=== PATIENT | male | born 1945 | race Caucasian/White ===

== ENCOUNTER 2022-12-03 03:14 | Inpatient (IN) | payer MEDICARE ==
[2022-12-03] MEDS ORDERED: Ketamine 50 MG/ML (10ML VIAL) ONE (04:04)
[2022-12-03] MEDS ORDERED: Calcium Chloride 1 GM/10 ML Abboject SYRINGE ONE ×2 (04:44→04:59)
[2022-12-03] MEDS ORDERED: Succinylcholine Chloride 100 MG/5 ML SYRINGE FS ONE (04:44)
[2022-12-03] MEDS ORDERED: Rocuronium Bromide 10 MG/ML (10ML VIAL) ONE (04:44)
[2022-12-03] MEDS ORDERED: Vecuronium 10 MG VIAL ONE ×2 (04:44→06:27)
[2022-12-03] MEDS ORDERED: Sodium Bicarb 50 MEQ/50 ML VIAL ONE ×2 (04:59→05:11)
[2022-12-03] MEDS ORDERED: fentaNYL PF 100 MCG/2 ML SYRINGE ONE (05:03)
[2022-12-03] MEDS ORDERED: Midazolam HCl 5 mg/5 ml Vial ONE (05:03)
[2022-12-03 05:17] LABS: Analyzer IN Cardio ER; Base Excess (BEa) -16.3 mEq/L (-2.0 to +3.0); CO2 Tension 46.8 mmHg (35.0-45.0); Calcium, Ionized (arterial) 1.09 mmol/L (1.12-1.30); Carboxyhemoglobin (COHb) 0.3 gm% (0.0-3.0); Hemoglobin (Hb) 13.4 g/dL (14.0-18.0); O2 Tension (PaO2), arterial 137.1 mmHg (> 70.0); Potassium - ABG Lab 4.41 mmol/L (3.70-5.30)
[2022-12-03 05:24] LABS: Actual Bicarbonate (HCO3a) 13.4 mEq/L (22-28); Puncture Site ALINE; pH, Arterial 7.08 (7.35-7.45)
[2022-12-03] MEDS ORDERED: Norepinephrine 4 MG/4 ML VIAL ONE (06:28)
[2022-12-03] MEDS ORDERED: Ondansetron ODT 4 MG TAB PO PRN (07:17)
[2022-12-03] MEDS ORDERED: Acetaminophen 325 MG TAB PO PRN (07:17)
[2022-12-03] MEDS ORDERED: Ondansetron PF 4 MG/2 ML Vial IVP PRN (07:17)
[2022-12-03] MEDS ORDERED: Ventilator Sedation Protocol 1 EACH FS SCH (07:30)
[2022-12-03] MEDS ORDERED: Rocuronium Bromide 50 MG/5 ML VIAL ONE (07:36)
[2022-12-03] MEDS ORDERED: Albumin 5% 1,000 ML ONE (07:36)
[2022-12-03] MEDS ORDERED: Fentanyl BOLUS 250 ML IVPB PRN (08:00)
[2022-12-03] MEDS ORDERED: DISCONTINUE PREVIOUS NARCOTIC PAIN MEDICATIONS AND BENZODIAZEPINES FS SCH (08:00)
[2022-12-03] MEDS ORDERED: Propofol 1,000 MG/100 ML VIAL IV PRN (08:00)
[2022-12-03] MEDS ORDERED: Propofol BOLUS 1,000 MG/100 ML VIAL IV PRN (08:00)
[2022-12-03 08:57] LABS: Calcium, Ionized (arterial) 1.09 mmol/L (1.12-1.30); Carboxyhemoglobin (COHb) 0.6 gm% (0.0-3.0); Hemoglobin (Hb) 10.9 g/dL (14.0-18.0); O2 Tension (PaO2), arterial 92.8 mmHg (> 70.0); Potassium - ABG Lab 3.78 mmol/L (3.70-5.30); pH, Arterial 7.24 (7.35-7.45)
[2022-12-03 08:58] LABS: Puncture Site Arterial Line
[2022-12-03] MEDS ORDERED: Dextrose 50% Abboject 50 ML SYRINGE SLOW IVP PRN (08:59)
[2022-12-03] MEDS ORDERED: VANCOMYCIN 1.25 GM/250 ML BAG 1.25 GM in Premix Bag 1 BAG IVPB SCH (09:00)
[2022-12-03] MEDS ORDERED: Electrolyte Replacement Protocol 1 EACH FS ONE (09:08)
[2022-12-03] MEDS: Fentanyl CADD 100 ML IV SCH (09:16)
[2022-12-03 09:20] LABS: ALT (SGPT) 34 U/L (8-55); AST (SGOT) 50 U/L (5-34); Albumin 2.5 g/dL (3.4-4.8); Alkaline Phosphatase 42 U/L (40-110); Anion Gap 10 mmol/L (10-20); BUN (Urea Nitrogen) 25 mg/dL (8.4-25.7); Calc. Creatinine Clearance 0 mL/min (70-130); Calcium 7.1 mg/dL (7.8-10.44); Carbon Dioxide 19 mmol/L (23-31); Chloride 119 mmol/L (98-107); Estimated GFR 85; Globulin 1.1 g/dL (2.4-3.5); Glucose 72 mg/dL (83-110); Potassium 3.8 mmol/L (3.5-5.1); Protein, Total 3.6 g/dL (5.8-8.1); Sodium 144 mmol/L (136-145)
[2022-12-03] MEDS: Piperacillin/Tazobactam 3.375 GM in Sodium Chloride 0.9% 100 ML IVPB SCH ×2 (09:28→17:29)
[2022-12-03] MEDS ORDERED: Electrolyte Replacement Protocol FS PRN (09:30)
[2022-12-03] MEDS: Sodium Bicarbonate 140 MEQ in Dextrose 5% in Water 1,000 ML IV SCH ×2 (09:42→21:12)
[2022-12-03] MEDS: Vasopressin 20 UNIT, Admixture Fee 1 EACH in Sodium Chloride 0.9% 50 ML IV PRN ×2 (15:25→23:39)
[2022-12-03] MEDS: Vancomycin 1 GM in Premix Bag 1 BAG IVPB SCH (15:25)
[2022-12-03] MEDS: DOPamine 400 MG/D5W 250 ML 250 ML IVPB SCH (15:27)
[2022-12-03] MEDS: NOREPINEPHRINE 8 MG/250 ML-D5W 250 ML IVPB PRN ×3 (15:27→23:10)
[2022-12-03] MEDS: Acetaminophen 650 MG Suppository PR PRN ×2 (15:31→23:54)
[2022-12-03] MEDS: Arformoterol 15 MCG/2 ML NEB NEB SCH (18:23)
[2022-12-03] MEDS: Budesonide 0.5 MG/2 ML NEB NEB SCH (18:28)
[2022-12-03 21:24] LABS: Anion Gap 14 mmol/L (10-20); BUN (Urea Nitrogen) 27 mg/dL (8.4-25.7); Calc. Creatinine Clearance 43 mL/min (70-130); Carbon Dioxide 19 mmol/L (23-31); Chloride 110 mmol/L (98-107); Estimated GFR 68; Glucose 119 mg/dL (83-110); Magnesium 1.8 mg/dL (1.6-2.6); Phosphorus 4.7 mg/dL (2.3-4.7); Potassium 4.2 mmol/L (3.5-5.1); Sodium 139 mmol/L (136-145)
[2022-12-03 21:27] LABS: Calcium 6.9 mg/dL (7.8-10.44)
[2022-12-03] MEDS ORDERED: Magnesium 2 GM/50 ML(in water) 2 GM in Premix Bag 1 BAG IVPB SCH (21:30)
[2022-12-04] MEDS: Piperacillin/Tazobactam 3.375 GM in Sodium Chloride 0.9% 100 ML IVPB SCH ×4 (00:46→23:18)
[2022-12-04] MEDS: NOREPINEPHRINE 8 MG/250 ML-D5W 250 ML IVPB PRN ×5 (03:03→22:10)
[2022-12-04] MEDS ORDERED: Albumin 25% 25 GM/100 ML BOT IVPB SCH (03:30)
[2022-12-04] MEDS: DOPamine 400 MG/D5W 250 ML 250 ML IVPB SCH ×2 (04:10→23:18)
[2022-12-04 05:25] LABS: Anion Gap 16 mmol/L (10-20); BUN (Urea Nitrogen) 30 mg/dL (8.4-25.7); Calc. Creatinine Clearance 34 mL/min (70-130); Carbon Dioxide 21 mmol/L (23-31); Chloride 105 mmol/L (98-107); Estimated GFR 51; Glucose 129 mg/dL (83-110); Phosphorus 4.9 mg/dL (2.3-4.7); Potassium 3.9 mmol/L (3.5-5.1); Sodium 138 mmol/L (136-145)
[2022-12-04 05:32] LABS: Band 40 % (5-11); Hemoglobin 10.3 g/dL (14.0-18.0); Hypochromia SLIGHT = 6-15 cells (100X) (0-5/hpf); Lymphocytes 6 % (21-51); MDiff Complete? YES; Macrocytosis SLIGHT = 6-15 cells (100X) (0-5/hpf); Mean Corpuscular HGB CONC 32.6 g/dL (32.0-36.0); Mean Corpuscular Hemoglobin 33.5 pg (27.0-31.0); Mean Platelet Volume 9.2 fL (7.4-10.4); Monocytes 8 % (0-10); Neutrophil 45 % (42-75); Platelet Count 94 10x3/uL (130-400); Platelet Morphology Comment Appears Decreased; RBC Distribution Width 12.7 % (11.5-14.5); Reactive Lymphocytes 1 % (0-10); Red Blood Cell (RBC) Count 3.07 mill/uL (4.70-6.10); Toxic Granulation SLIGHT; White Blood Cell (WBC) Count 4.6 10x3/uL (4.8-10.8)
[2022-12-04] MEDS: Budesonide 0.5 MG/2 ML NEB NEB SCH ×2 (07:24→18:44)
[2022-12-04] MEDS: Arformoterol 15 MCG/2 ML NEB NEB SCH ×2 (07:24→18:43)
[2022-12-04 07:41] LABS: Base Excess (BEa) -2.6 mEq/L (-2.0 to +3.0); CO2 Tension 43.5 mmHg (35.0-45.0); Calcium, Ionized (arterial) 0.96 mmol/L (1.12-1.30); Carboxyhemoglobin (COHb) 0.4 gm% (0.0-3.0); Hemoglobin (Hb) 11.1 g/dL (14.0-18.0); O2 Tension (PaO2), arterial 77.3 mmHg (> 70.0); Potassium - ABG Lab 3.81 mmol/L (3.70-5.30); pH, Arterial 7.34 (7.35-7.45)
[2022-12-04 07:43] LABS: ALV-art Gradient 153.525 mmHg (0-20); Puncture Site Arterial Line
[2022-12-04 08:25] LABS: Prothrombin Time 23.8 sec (12.0-14.7)
[2022-12-04 08:26] LABS: Fibrinogen 340 mg/dL (253-463); PTT 62.3 sec (22.9-36.1)
[2022-12-04 08:35] LABS: D-Dimer Test 4.97 *mcg/mL (0.27-0.43)
[2022-12-04 08:42] LABS: Platelet Count 82 10x3/uL (130-400)
[2022-12-04] MEDS: Vasopressin 20 UNIT, Admixture Fee 1 EACH in Sodium Chloride 0.9% 50 ML IV PRN ×2 (08:49→23:18)
[2022-12-04] MEDS: Sodium Bicarbonate 140 MEQ in Dextrose 5% in Water 1,000 ML IV SCH ×2 (08:52→11:16)
[2022-12-04] MEDS: Vancomycin 1 GM in Premix Bag 1 BAG IVPB SCH (09:05)
[2022-12-04 09:09] LABS: INR-International Normal Ratio 2.1; Prothrombin Time 24.3 sec (12.0-14.7)
[2022-12-04 09:10] LABS: PTT 60.8 sec (22.9-36.1)
[2022-12-04] MEDS ORDERED: Hydrocortisone 10 mg Tablet PO SCH (10:30)
[2022-12-04] MEDS ORDERED: Hydrocortisone Sod Succ/PF 100 mg/2 ml Vial IVP SCH (11:00)
[2022-12-04] MEDS ORDERED: Amiodarone 75 MG, Admixture Fee 1 EACH in Dextrose 5% in Water 100 ML IVPB SCH (16:15)
[2022-12-04] MEDS: Amiodarone 450 MG, Admixture Fee 1 EACH in Dextrose 5% in Water 250 ML IVPB SCH (16:59)
[2022-12-05] MEDS: Sodium Bicarbonate 140 MEQ in Dextrose 5% in Water 1,000 ML IV SCH (01:11)
[2022-12-05] MEDS: Vasopressin 20 UNIT, Admixture Fee 1 EACH in Sodium Chloride 0.9% 50 ML IV PRN ×3 (02:08→18:23)
[2022-12-05] MEDS: NOREPINEPHRINE 8 MG/250 ML-D5W 250 ML IVPB PRN ×6 (02:11→22:25)
[2022-12-05] MEDS: Amiodarone 450 MG, Admixture Fee 1 EACH in Dextrose 5% in Water 250 ML IVPB SCH ×2 (02:41→18:23)
[2022-12-05] MEDS: Fentanyl CADD 100 ML IV SCH (03:02)
[2022-12-05 05:06] LABS: ALT (SGPT) 41 U/L (8-55); AST (SGOT) 118 U/L (5-34); Albumin 2.8 g/dL (3.4-4.8); Alkaline Phosphatase 58 U/L (40-110); Anion Gap 13 mmol/L (10-20); BUN (Urea Nitrogen) 26 mg/dL (8.4-25.7); Band 27 % (5-11); Bilirubin, Total 1.1 mg/dL (0.2-1.2); Calc. Creatinine Clearance 52 mL/min (70-130); Carbon Dioxide 24 mmol/L (23-31); Chloride 95 mmol/L (98-107); Estimated GFR 80; Globulin 1.7 g/dL (2.4-3.5); Glucose 105 mg/dL (83-110); Hemoglobin 10.6 g/dL (14.0-18.0); Lymphocytes 6 % (21-51); MDiff Complete? YES; Magnesium 1.9 mg/dL (1.6-2.6); Mean Corpuscular HGB CONC 33.8 g/dL (32.0-36.0); Mean Platelet Volume 9.6 fL (7.4-10.4); Metamyelocyte 4 % (0-0); Microcytosis SLIGHT = 6-15 cells (100X) (0-5/hpf); Monocytes 7 % (0-10); Neutrophil 56 % (42-75); Ovalocytes SLIGHT = 2-5 cells (100X) (0-1/hpf); Phosphorus 3.3 mg/dL (2.3-4.7); Platelet Count 64 10x3/uL (130-400); Platelet Morphology Comment Appears Decreased; Potassium 3.2 mmol/L (3.5-5.1); Protein, Total 4.5 g/dL (5.8-8.1); RBC Distribution Width 12.8 % (11.5-14.5); Red Blood Cell (RBC) Count 3.11 mill/uL (4.70-6.10); Sodium 129 mmol/L (136-145)
[2022-12-05] MEDS ORDERED: Magnesium 2 GM/50 ML(in water) 2 GM in Premix Bag 1 BAG IVPB SCH (08:00)
[2022-12-05] MEDS: Arformoterol 15 MCG/2 ML NEB NEB SCH ×2 (08:18→18:36)
[2022-12-05] MEDS: Budesonide 0.5 MG/2 ML NEB NEB SCH ×2 (08:18→18:36)
[2022-12-05 08:26] LABS: Actual Bicarbonate (HCO3a) 25.5 mEq/L (22-28); Base Excess (BEa) 1.5 mEq/L (-2.0 to +3.0); CO2 Tension 38.1 mmHg (35.0-45.0); Calcium, Ionized (arterial) 1.05 mmol/L (1.12-1.30); Carboxyhemoglobin (COHb) 0.8 gm% (0.0-3.0); Hemoglobin (Hb) 11.3 g/dL (14.0-18.0); O2 Tension (PaO2), arterial 69.9 mmHg (> 70.0); Potassium - ABG Lab 3.14 mmol/L (3.70-5.30); pH, Arterial 7.44 (7.35-7.45)
[2022-12-05 08:28] LABS: ALV-art Gradient 132.025 mmHg (0-20); Puncture Site Arterial Line
[2022-12-05] MEDS: Piperacillin/Tazobactam 3.375 GM in Sodium Chloride 0.9% 100 ML IVPB SCH ×2 (08:54→17:29)
[2022-12-05] MEDS: Pantoprazole 40 MG VIAL IVP SCH (08:55)
[2022-12-05] MEDS: Potassium Chloride 20 MEQ in Premix Bag 1 BAG IVPB SCH (08:55)
[2022-12-05 08:56] LABS: Vancomycin, Trough 10.3 ug/mL
[2022-12-05 09:15] LABS: Actual Bicarbonate (HCO3a) 19.4 mEq/L (22-28); Analyzer IN Cardio OR; Base Excess (BEa) -10.2 mEq/L (-2.0 to +3.0); CO2 Tension 59.3 mmHg (35.0-45.0); Calcium, Ionized (arterial) 1.16 mmol/L (1.12-1.30); Carboxyhemoglobin (COHb) 1.3 gm% (0.0-3.0); Hemoglobin (Hb) 13.4 g/dL (14.0-18.0); O2 Tension (PaO2), arterial 335.2 mmHg (> 70.0); Potassium - ABG Lab 4.41 mmol/L (3.70-5.30)
[2022-12-05 09:16] LABS: Actual Bicarbonate (HCO3a) 17.2 mEq/L (22-28); Analyzer IN Cardio OR; Base Excess (BEa) -9.6 mEq/L (-2.0 to +3.0); CO2 Tension 40.5 mmHg (35.0-45.0); Calcium, Ionized (arterial) 1.09 mmol/L (1.12-1.30); Carboxyhemoglobin (COHb) 1.1 gm% (0.0-3.0); Hemoglobin (Hb) 13.2 g/dL (14.0-18.0); O2 Tension (PaO2), arterial 289.9 mmHg (> 70.0); Potassium - ABG Lab 4.14 mmol/L (3.70-5.30); pH, Arterial 7.25 (7.35-7.45)
[2022-12-05 09:19] LABS: Puncture Site Arterial Line; pH, Arterial 7.13 (7.35-7.45)
[2022-12-05 09:20] LABS: Puncture Site Arterial Line
[2022-12-05] MEDS: Vancomycin 1 GM in Premix Bag 1 BAG IVPB SCH (10:01)
[2022-12-05] MEDS: VANCOMYCIN 1.25 GM/250 ML BAG 1.25 GM in Premix Bag 1 BAG IVPB SCH (10:01)
[2022-12-05] MEDS ORDERED: Lactated Ringer's 1,000 ML IV SCH (11:15)
[2022-12-05] MEDS ORDERED: Calcium Chloride 1 GM/10 ML Abboject SYRINGE IVP SCH (11:15)
[2022-12-05] MEDS: Dextrose 5%-Lactated Ringers 1,000 ML IV SCH (14:07)
[2022-12-06] MEDS: Dextrose 5%-Lactated Ringers 1,000 ML IV SCH (00:24)
[2022-12-06] MEDS: Piperacillin/Tazobactam 3.375 GM in Sodium Chloride 0.9% 100 ML IVPB SCH ×3 (00:24→16:20)
[2022-12-06] MEDS: NOREPINEPHRINE 8 MG/250 ML-D5W 250 ML IVPB PRN ×5 (02:50→23:03)
[2022-12-06] MEDS: Vasopressin 20 UNIT, Admixture Fee 1 EACH in Sodium Chloride 0.9% 50 ML IV PRN (04:30)
[2022-12-06 05:03] LABS: ALT (SGPT) 48 U/L (8-55); AST (SGOT) 121 U/L (5-34); Alkaline Phosphatase 79 U/L (40-110); Anion Gap 11 mmol/L (10-20); BUN (Urea Nitrogen) 25 mg/dL (8.4-25.7); Bilirubin, Total 1.2 mg/dL (0.2-1.2); Calc. Creatinine Clearance 71 mL/min (70-130); Calcium 8.3 mg/dL (7.8-10.44); Carbon Dioxide 22 mmol/L (23-31); Chloride 97 mmol/L (98-107); Estimated GFR 94; Globulin 2.1 g/dL (2.4-3.5); Glucose 111 mg/dL (83-110); Magnesium 1.7 mg/dL (1.6-2.6); Phosphorus 2.3 mg/dL (2.3-4.7); Potassium 3.3 mmol/L (3.5-5.1); Protein, Total 4.1 g/dL (5.8-8.1); Sodium 127 mmol/L (136-145)
[2022-12-06 05:06] LABS: Band 21 % (5-11); Eosinophils 1 % (0-10); Lymphocytes 6 % (21-51); MDiff Complete? YES; Macrocytosis SLIGHT = 6-15 cells (100X) (0-5/hpf); Mean Corpuscular HGB CONC 33.3 g/dL (32.0-36.0); Mean Corpuscular Hemoglobin 33.7 pg (27.0-31.0); Mean Platelet Volume 10.3 fL (7.4-10.4); Monocytes 19 % (0-10); Neutrophil 53 % (42-75); Platelet Count 52 10x3/uL (130-400); Platelet Morphology Comment Appears Decreased; RBC Distribution Width 12.7 % (11.5-14.5); Red Blood Cell (RBC) Count 2.97 mill/uL (4.70-6.10); White Blood Cell (WBC) Count 9.7 10x3/uL (4.8-10.8)
[2022-12-06] MEDS: Budesonide 0.5 MG/2 ML NEB NEB SCH ×2 (06:40→18:21)
[2022-12-06] MEDS: Arformoterol 15 MCG/2 ML NEB NEB SCH ×2 (06:40→18:21)
[2022-12-06] MEDS: Amiodarone 450 MG, Admixture Fee 1 EACH in Dextrose 5% in Water 250 ML IVPB SCH (07:07)
[2022-12-06] MEDS ORDERED: Magnesium 2 GM/50 ML(in water) 2 GM in Premix Bag 1 BAG IVPB SCH (08:00)
[2022-12-06] MEDS ORDERED: Sodium Chloride 0.9% 1,000 ML IV SCH (08:30)
[2022-12-06] MEDS: Hydrocortisone Sod Succ/PF 100 mg/2 ml Vial IVP SCH ×2 (09:21→16:19)
[2022-12-06] MEDS: Pantoprazole 40 MG VIAL IVP SCH (09:21)
[2022-12-06] MEDS: Potassium Chloride 20 MEQ in Premix Bag 1 BAG IVPB SCH ×2 (09:25→09:30)
[2022-12-06] MEDS ORDERED: Acetaminophen 500 MG TAB PO SCH (10:15)
[2022-12-06] MEDS: VANCOMYCIN 1.25 GM/250 ML BAG 1.25 GM in Premix Bag 1 BAG IVPB SCH (10:59)
[2022-12-06] MEDS: Albumin 25% 25 GM/100 ML BOT IVPB SCH ×2 (11:00→17:35)
[2022-12-06] MEDS: Dextrose 5 % And 0.9 % NaCl 1,000 ML IV SCH (18:25)
[2022-12-06] MEDS: Lorazepam 2 MG/ML VIAL SLOW IVP PRN (20:18)
[2022-12-07] MEDS: Hydrocortisone Sod Succ/PF 100 mg/2 ml Vial IVP SCH ×3 (00:06→16:05)
[2022-12-07] MEDS: Piperacillin/Tazobactam 3.375 GM in Sodium Chloride 0.9% 100 ML IVPB SCH ×3 (00:07→16:04)
[2022-12-07] MEDS: Amiodarone 450 MG, Admixture Fee 1 EACH in Dextrose 5% in Water 250 ML IVPB SCH ×3 (00:07→16:28)
[2022-12-07] MEDS: Albumin 25% 25 GM/100 ML BOT IVPB SCH (01:46)
[2022-12-07] MEDS: Morphine 2 MG/ML VIAL SLOW IVP PRN ×2 (02:04→03:40)
[2022-12-07] MEDS: Dextrose 5 % And 0.9 % NaCl 1,000 ML IV SCH ×2 (03:00→16:29)
[2022-12-07 04:30] LABS: Phosphorus 1.6 mg/dL (2.3-4.7)
[2022-12-07 04:35] LABS: ALT (SGPT) 62 U/L (8-55); AST (SGOT) 128 U/L (5-34); Albumin 2.7 g/dL (3.4-4.8); Alkaline Phosphatase 61 U/L (40-110); Anion Gap 11 mmol/L (10-20); BUN (Urea Nitrogen) 33 mg/dL (8.4-25.7); Bilirubin, Total 2.2 mg/dL (0.2-1.2); Calc. Creatinine Clearance 60 mL/min (70-130); Calcium 8.2 mg/dL (7.8-10.44); Carbon Dioxide 19 mmol/L (23-31); Chloride 100 mmol/L (98-107); Estimated GFR 85; Globulin 1.9 g/dL (2.4-3.5); Glucose 109 mg/dL (83-110); Magnesium 2.1 mg/dL (1.6-2.6); Potassium 3.6 mmol/L (3.5-5.1); Protein, Total 4.6 g/dL (5.8-8.1); Sodium 126 mmol/L (136-145)
[2022-12-07 04:45] LABS: Band 23 % (5-11); Hemoglobin 9.4 g/dL (14.0-18.0); Lymphocytes 5 % (21-51); MDiff Complete? YES; Macrocytosis MODERATE=16-30 cells (100X) (0-5/hpf); Mean Corpuscular HGB CONC 33.3 g/dL (32.0-36.0); Mean Corpuscular Hemoglobin 33.5 pg (27.0-31.0); Metamyelocyte 2 % (0-0); Monocytes 17 % (0-10); Neutrophil 53 % (42-75); Ovalocytes SLIGHT = 2-5 cells (100X) (0-1/hpf); Platelet Count 43 10x3/uL (130-400); Platelet Morphology Comment Appears Decreased; RBC Distribution Width 12.9 % (11.5-14.5); Red Blood Cell (RBC) Count 2.79 mill/uL (4.70-6.10); White Blood Cell (WBC) Count 8.9 10x3/uL (4.8-10.8)
[2022-12-07] MEDS: NOREPINEPHRINE 8 MG/250 ML-D5W 250 ML IVPB PRN ×2 (05:27→18:18)
[2022-12-07] MEDS: Potassium Phosphate 15 MMOL in Sodium Chloride 0.9% 100 ML IVPB SCH ×2 (06:49→09:29)
[2022-12-07] MEDS ORDERED: Budesonide 0.5 MG/2 ML NEB ONE (06:57)
[2022-12-07 07:28] LABS: Actual Bicarbonate (HCO3a) 21.5 mEq/L (22-28); Base Excess (BEa) -1.7 mEq/L (-2.0 to +3.0); CO2 Tension 30.8 mmHg (35.0-45.0); Carboxyhemoglobin (COHb) 0.6 gm% (0.0-3.0); Hemoglobin (Hb) 9.2 g/dL (14.0-18.0); O2 Tension (PaO2), arterial 134.7 mmHg (> 70.0); Potassium - ABG Lab 3.22 mmol/L (3.70-5.30); pH, Arterial 7.46 (7.35-7.45)
[2022-12-07 07:29] LABS: Puncture Site Arterial Line
[2022-12-07] MEDS: Budesonide 0.5 MG/2 ML NEB NEB SCH ×2 (07:31→18:31)
[2022-12-07] MEDS: Arformoterol 15 MCG/2 ML NEB NEB SCH ×2 (07:31→18:31)
[2022-12-07] MEDS: Pantoprazole 40 MG VIAL IVP SCH (09:26)
[2022-12-07] MEDS ORDERED: Calcium Chloride 13.6 MEQ in Sodium Chloride 0.9% 100 ML IVPB SCH (09:30)
[2022-12-07 12:45] LABS: INR-International Normal Ratio 1.6; PTT 45.1 sec (22.9-36.1); Prothrombin Time 19.7 sec (12.0-14.7)
[2022-12-07] MEDS ORDERED: Furosemide 20 MG/2 ML VIAL SLOW IVP SCH (15:45)
[2022-12-08] MEDS: Dextrose 5 % And 0.9 % NaCl 1,000 ML IV SCH ×3 (01:00→21:05)
[2022-12-08] MEDS: Hydrocortisone Sod Succ/PF 100 mg/2 ml Vial IVP SCH ×3 (01:17→16:30)
[2022-12-08] MEDS: Piperacillin/Tazobactam 3.375 GM in Sodium Chloride 0.9% 100 ML IVPB SCH ×3 (01:17→16:32)
[2022-12-08] MEDS: Morphine 2 MG/ML VIAL SLOW IVP PRN ×2 (03:30→23:10)
[2022-12-08 05:25] LABS: Mean Corpuscular HGB CONC 33.1 g/dL (32.0-36.0); Mean Corpuscular Hemoglobin 33.3 pg (27.0-31.0); Mean Platelet Volume 11.8 fL (7.4-10.4); Platelet Count 42 10x3/uL (130-400); RBC Distribution Width 13.3 % (11.5-14.5); White Blood Cell (WBC) Count 13.4 10x3/uL (4.8-10.8)
[2022-12-08 05:43] LABS: Anion Gap 12 mmol/L (10-20); BUN (Urea Nitrogen) 38 mg/dL (8.4-25.7); Calc. Creatinine Clearance 64 mL/min (70-130); Calcium 8.4 mg/dL (7.8-10.44); Carbon Dioxide 21 mmol/L (23-31); Chloride 99 mmol/L (98-107); Estimated GFR 87; Glucose 94 mg/dL (83-110); Magnesium 1.9 mg/dL (1.6-2.6); Sodium 129 mmol/L (136-145)
[2022-12-08 05:48] LABS: Phosphorus 1.4 mg/dL (2.3-4.7)
[2022-12-08 05:56] LABS: Band 37 % (5-11); Dohle Bodies SLIGHT; Lymphocytes 3 % (21-51); MDiff Complete? YES; Monocytes 2 % (0-10); Myelocyte 2 % (0-0); Neutrophil 56 % (42-75); Platelet Morphology Comment Appears Decreased; Toxic Granulation SLIGHT
[2022-12-08 06:58] LABS: Actual Bicarbonate (HCO3a) 20.2 mEq/L (22-28); Base Excess (BEa) -3.3 mEq/L (-2.0 to +3.0); CO2 Tension 31.2 mmHg (35.0-45.0); Calcium, Ionized (arterial) 1.18 mmol/L (1.12-1.30); Carboxyhemoglobin (COHb) 0.8 gm% (0.0-3.0); Hemoglobin (Hb) 10.3 g/dL (14.0-18.0); O2 Tension (PaO2), arterial 63.2 mmHg (> 70.0); Potassium - ABG Lab 3.09 mmol/L (3.70-5.30); pH, Arterial 7.43 (7.35-7.45)
[2022-12-08] MEDS: Arformoterol 15 MCG/2 ML NEB NEB SCH ×2 (07:09→18:33)
[2022-12-08] MEDS: Budesonide 0.5 MG/2 ML NEB NEB SCH ×2 (07:10→18:33)
[2022-12-08 07:11] LABS: Puncture Site Arterial Line
[2022-12-08] MEDS: Pantoprazole 40 MG VIAL IVP SCH (08:44)
[2022-12-08] MEDS ORDERED: Potassium Phosphate 22 MMOL in Sodium Chloride 0.9% 250 ML 250 ML IVPB SCH (09:00)
[2022-12-08] MEDS: Amiodarone 450 MG, Admixture Fee 1 EACH in Dextrose 5% in Water 250 ML IVPB SCH (09:04)
[2022-12-08] MEDS: NOREPINEPHRINE 8 MG/250 ML-D5W 250 ML IVPB PRN (09:13)
[2022-12-08] MEDS ORDERED: Metolazone 2.5 MG TAB PO SCH (10:00)
[2022-12-08] MEDS ORDERED: Iopamidol-370 76% 500 ML MDV (1 ML CHARGE) ONE (11:40)
[2022-12-08] MEDS ORDERED: GASTROGRAFIN 30 ML BOT ONE (11:40)
[2022-12-08] MEDS ORDERED: Activase 2 MG VIAL CATH SCH ×2 (13:15)
[2022-12-08] MEDS ORDERED: Sterile Water 10 ML VIAL IVP SCH (13:30)
[2022-12-09] MEDS: Piperacillin/Tazobactam 3.375 GM in Sodium Chloride 0.9% 100 ML IVPB SCH ×3 (01:25→16:55)
[2022-12-09] MEDS: Hydrocortisone Sod Succ/PF 100 mg/2 ml Vial IVP SCH ×3 (01:49→15:57)
[2022-12-09 03:56] LABS: Hemoglobin 9.9 g/dL (14.0-18.0); Mean Corpuscular HGB CONC 33.5 g/dL (32.0-36.0); Mean Corpuscular Hemoglobin 33.3 pg (27.0-31.0); Mean Corpuscular Volume 99.5 fl (78.0-98.0); RBC Distribution Width 13.6 % (11.5-14.5); Red Blood Cell (RBC) Count 2.97 mill/uL (4.70-6.10); White Blood Cell (WBC) Count 20.4 10x3/uL (4.8-10.8)
[2022-12-09 04:24] LABS: Anion Gap 14 mmol/L (10-20); BUN (Urea Nitrogen) 41 mg/dL (8.4-25.7); Calc. Creatinine Clearance 62 mL/min (70-130); Carbon Dioxide 20 mmol/L (23-31); Chloride 100 mmol/L (98-107); Estimated GFR 83; Glucose 99 mg/dL (83-110); Phosphorus 1.9 mg/dL (2.3-4.7); Potassium 2.9 mmol/L (3.5-5.1); Sodium 131 mmol/L (136-145)
[2022-12-09 04:28] LABS: Band 8 % (5-11); Lymphocytes 3 % (21-51); MDiff Complete? YES; Macrocytosis SLIGHT = 6-15 cells (100X) (0-5/hpf); Mean Platelet Volume 12.8 fL (7.4-10.4); Neutrophil 87 % (42-75); Nucleated RBC 1 % (0); Platelet Count 39 10x3/uL (130-400); Platelet Morphology Comment Appears Decreased; Polychromasia SLIGHT = 2-3 cells (100X) (0-2/hpf); Reactive Lymphocytes 2 % (0-10)
[2022-12-09] MEDS ORDERED: Potassium Phosphate 15 MMOL in Sodium Chloride 0.9% 100 ML IVPB SCH (05:30)
[2022-12-09] MEDS: Potassium Chloride 20 MEQ in Premix Bag 1 BAG IVPB SCH ×3 (07:14→11:48)
[2022-12-09 07:25] LABS: Actual Bicarbonate (HCO3a) 20.1 mEq/L (22-28); Base Excess (BEa) -3.2 mEq/L (-2.0 to +3.0); CO2 Tension 30.7 mmHg (35.0-45.0); Calcium, Ionized (arterial) 1.14 mmol/L (1.12-1.30); Carboxyhemoglobin (COHb) 0.9 gm% (0.0-3.0); Hemoglobin (Hb) 12.4 g/dL (14.0-18.0); O2 Tension (PaO2), arterial 105.6 mmHg (> 70.0); Potassium - ABG Lab 2.93 mmol/L (3.70-5.30); pH, Arterial 7.43 (7.35-7.45)
[2022-12-09] MEDS: Arformoterol 15 MCG/2 ML NEB NEB SCH ×2 (07:39→18:15)
[2022-12-09] MEDS: Amiodarone 450 MG, Admixture Fee 1 EACH in Dextrose 5% in Water 250 ML IVPB SCH (07:39)
[2022-12-09] MEDS: Budesonide 0.5 MG/2 ML NEB NEB SCH ×2 (07:39→18:12)
[2022-12-09 07:43] LABS: ALV-art Gradient 141.225 mmHg (0-20); Puncture Site Arterial Line
[2022-12-09] MEDS ORDERED: Magnesium 2 GM/50 ML(in water) 2 GM in Premix Bag 1 BAG IVPB SCH (08:00)
[2022-12-09] MEDS: Dextrose 5 % And 0.9 % NaCl 1,000 ML IV SCH ×3 (08:36→20:17)
[2022-12-09] MEDS: Pantoprazole 40 MG VIAL IVP SCH (09:35)
[2022-12-09] MEDS: Morphine 2 MG/ML VIAL SLOW IVP PRN ×2 (09:43→15:08)
[2022-12-09] MEDS ORDERED: Metolazone 2.5 MG TAB PO SCH (11:00)
[2022-12-09] MEDS: Albumin 25% 25 GM/100 ML BOT IVPB SCH ×2 (11:28→18:24)
[2022-12-10] MEDS: Hydrocortisone Sod Succ/PF 100 mg/2 ml Vial IVP SCH ×3 (01:58→16:23)
[2022-12-10] MEDS: Piperacillin/Tazobactam 3.375 GM in Sodium Chloride 0.9% 100 ML IVPB SCH ×3 (02:00→16:23)
[2022-12-10] MEDS: Albumin 25% 25 GM/100 ML BOT IVPB SCH ×2 (02:00→09:10)
[2022-12-10 05:11] LABS: Hemoglobin 8.5 g/dL (14.0-18.0); Mean Corpuscular HGB CONC 33.7 g/dL (32.0-36.0); Mean Corpuscular Hemoglobin 33.7 pg (27.0-31.0); Mean Corpuscular Volume 99.9 fl (78.0-98.0); Mean Platelet Volume 11.3 fL (7.4-10.4); Platelet Count 54 10x3/uL (130-400); RBC Distribution Width 13.8 % (11.5-14.5); Red Blood Cell (RBC) Count 2.51 mill/uL (4.70-6.10); White Blood Cell (WBC) Count 20.5 10x3/uL (4.8-10.8)
[2022-12-10 05:32] LABS: ALT (SGPT) 45 U/L (8-55); AST (SGOT) 87 U/L (5-34); Albumin 2.7 g/dL (3.4-4.8); Alkaline Phosphatase 82 U/L (40-110); Anion Gap 14 mmol/L (10-20); BUN (Urea Nitrogen) 38 mg/dL (8.4-25.7); Bilirubin, Total 4.9 mg/dL (0.2-1.2); Calc. Creatinine Clearance 69 mL/min (70-130); Calcium 8.4 mg/dL (7.8-10.44); Carbon Dioxide 19 mmol/L (23-31); Chloride 104 mmol/L (98-107); Estimated GFR 88; Globulin 1.7 g/dL (2.4-3.5); Glucose 93 mg/dL (83-110); Magnesium 2.3 mg/dL (1.6-2.6); Phosphorus 2.1 mg/dL (2.3-4.7); Protein, Total 4.4 g/dL (5.8-8.1); Sodium 134 mmol/L (136-145)
[2022-12-10 05:51] LABS: Band 16 % (5-11); Lymphocytes 6 % (21-51); MDiff Complete? YES; Monocytes 3 % (0-10); Myelocyte 2 % (0-0); Neutrophil 73 % (42-75); Platelet Morphology Comment Appears Decreased; Toxic Granulation SLIGHT
[2022-12-10] MEDS: Amiodarone 450 MG, Admixture Fee 1 EACH in Dextrose 5% in Water 250 ML IVPB SCH (06:44)
[2022-12-10] MEDS: Dextrose 5 % And 0.9 % NaCl 1,000 ML IV SCH ×2 (06:46→22:42)
[2022-12-10] MEDS: Arformoterol 15 MCG/2 ML NEB NEB SCH ×2 (06:56→19:16)
[2022-12-10] MEDS: Budesonide 0.5 MG/2 ML NEB NEB SCH ×2 (06:57→19:16)
[2022-12-10] MEDS: Potassium Chloride 20 MEQ in Premix Bag 1 BAG IVPB SCH ×6 (07:14→20:36)
[2022-12-10] MEDS: Pantoprazole 40 MG VIAL IVP SCH (08:34)
[2022-12-10] MEDS: Multivitamins, Adult 10 ML, TRACE ELEMENT CONCENTRATE 1 ML in D15W-AA 5% with Lytes 2,0... IV SCH (13:40)
[2022-12-10 14:21] LABS: Anion Gap 13 mmol/L (10-20); BUN (Urea Nitrogen) 33 mg/dL (8.4-25.7); Calc. Creatinine Clearance 79 mL/min (70-130); Calcium 7.9 mg/dL (7.8-10.44); Carbon Dioxide 18 mmol/L (23-31); Chloride 108 mmol/L (98-107); Estimated GFR 92; Glucose 99 mg/dL (83-110); Potassium 2.9 mmol/L (3.5-5.1); Sodium 136 mmol/L (136-145)
[2022-12-10] MEDS: Lorazepam 2 MG/ML VIAL SLOW IVP PRN (22:49)
[2022-12-11] MEDS: Piperacillin/Tazobactam 3.375 GM in Sodium Chloride 0.9% 100 ML IVPB SCH ×2 (01:26→09:06)
[2022-12-11] MEDS: Hydrocortisone Sod Succ/PF 100 mg/2 ml Vial IVP SCH ×3 (01:27→17:04)
[2022-12-11 04:18] LABS: Hemoglobin 8.7 g/dL (14.0-18.0); Mean Corpuscular Hemoglobin 32.5 pg (27.0-31.0); Mean Platelet Volume 11.5 fL (7.4-10.4); Platelet Count 78 10x3/uL (130-400); Red Blood Cell (RBC) Count 2.67 mill/uL (4.70-6.10); White Blood Cell (WBC) Count 21.8 10x3/uL (4.8-10.8)
[2022-12-11 04:36] LABS: Anion Gap 11 mmol/L (10-20); BUN (Urea Nitrogen) 32 mg/dL (8.4-25.7); Calc. Creatinine Clearance 81 mL/min (70-130); Carbon Dioxide 19 mmol/L (23-31); Chloride 109 mmol/L (98-107); Estimated GFR 93; Glucose 146 mg/dL (83-110); Phosphorus 2.2 mg/dL (2.3-4.7); Potassium 3.6 mmol/L (3.5-5.1); Sodium 135 mmol/L (136-145)
[2022-12-11 04:44] LABS: Band 4 % (5-11); Lymphocytes 2 % (21-51); MDiff Complete? YES; Metamyelocyte 4 % (0-0); Monocytes 1 % (0-10); Myelocyte 3 % (0-0); Neutrophil 86 % (42-75); Platelet Morphology Comment Appears Decreased; Polychromasia SLIGHT = 2-3 cells (100X) (0-2/hpf); Target Cells SLIGHT = 2-5 cells (100X) (0-1/hpf)
[2022-12-11 05:57] LABS: ALT (SGPT) 52 U/L (8-55); AST (SGOT) 114 U/L (5-34); Albumin 2.5 g/dL (3.4-4.8); Alkaline Phosphatase 97 U/L (40-110); Bilirubin, Direct 3.3 mg/dL (0.1-0.3); Bilirubin, Total 4.2 mg/dL (0.2-1.2); Protein, Total 4.4 g/dL (5.8-8.1)
[2022-12-11] MEDS: Amiodarone 450 MG, Admixture Fee 1 EACH in Dextrose 5% in Water 250 ML IVPB SCH (06:36)
[2022-12-11] MEDS: Budesonide 0.5 MG/2 ML NEB NEB SCH ×2 (07:45→18:22)
[2022-12-11] MEDS: Arformoterol 15 MCG/2 ML NEB NEB SCH ×2 (07:45→18:22)
[2022-12-11] MEDS ORDERED: Furosemide 20 MG/2 ML VIAL SLOW IVP SCH (09:00)
[2022-12-11] MEDS ORDERED: Albumin 25% 25 GM/100 ML BOT IVPB SCH (09:00)
[2022-12-11] MEDS: Pantoprazole 40 MG VIAL IVP SCH (09:08)
[2022-12-11] MEDS: Dextrose 5 % And 0.9 % NaCl 1,000 ML IV SCH (10:24)
[2022-12-11] MEDS: Morphine 2 MG/ML VIAL SLOW IVP PRN ×2 (11:13→13:10)
[2022-12-11] MEDS ORDERED: Meropenem 1 GM in Sodium Chloride 0.9% 100 ML IVPB SCH ×2 (12:15→14:00)
[2022-12-11] MEDS: Micafungin 100 MG in Sodium Chloride 0.9% 100 ML IVPB SCH (13:10)
[2022-12-11] MEDS: Multivitamins, Adult 10 ML, TRACE ELEMENT CONCENTRATE 1 ML in D15W-AA 5% with Lytes 2,0... IV SCH (14:54)
[2022-12-11] MEDS: Meropenem 1 GM in Sodium Chloride 0.9% 100 ML IVPB SCH (21:25)
[2022-12-11] MEDS ORDERED: Sevoflurane 250 ML INH ANEST BOTTLE ONE (22:48)
[2022-12-12] MEDS: Hydrocortisone Sod Succ/PF 100 mg/2 ml Vial IVP SCH ×4 (00:36→23:13)
[2022-12-12] MEDS: Morphine 2 MG/ML VIAL SLOW IVP PRN ×3 (01:44→23:13)
[2022-12-12] MEDS: Meropenem 1 GM in Sodium Chloride 0.9% 100 ML IVPB SCH ×3 (04:08→21:13)
[2022-12-12 04:48] LABS: Hemoglobin 8.6 g/dL (14.0-18.0); Mean Corpuscular HGB CONC 30.7 g/dL (32.0-36.0); Mean Corpuscular Hemoglobin 31.1 pg (27.0-31.0); Mean Platelet Volume 11.2 fL (7.4-10.4); Platelet Count 113 10x3/uL (130-400); RBC Distribution Width 14.3 % (11.5-14.5); Red Blood Cell (RBC) Count 2.78 mill/uL (4.70-6.10); White Blood Cell (WBC) Count 22.1 10x3/uL (4.8-10.8)
[2022-12-12 05:15] LABS: ALT (SGPT) 54 U/L (8-55); AST (SGOT) 115 U/L (5-34); Albumin 2.3 g/dL (3.4-4.8); Alkaline Phosphatase 114 U/L (40-110); Bilirubin, Total 3.6 mg/dL (0.2-1.2); Protein, Total 4.4 g/dL (5.8-8.1)
[2022-12-12 05:19] LABS: Magnesium 1.9 mg/dL (1.6-2.6); Phosphorus 2.8 mg/dL (2.3-4.7)
[2022-12-12 05:23] LABS: Anion Gap 8 mmol/L (10-20); BUN (Urea Nitrogen) 35 mg/dL (8.4-25.7); Calc. Creatinine Clearance 101 mL/min (70-130); Calcium 8.4 mg/dL (7.8-10.44); Carbon Dioxide 25 mmol/L (23-31); Chloride 105 mmol/L (98-107); Estimated GFR 96; Glucose 124 mg/dL (83-110); Sodium 136 mmol/L (136-145)
[2022-12-12 05:29] LABS: Potassium 2.4 mmol/L (3.5-5.1)
[2022-12-12 05:47] LABS: Band 15 % (5-11); Lymphocytes 6 % (21-51); MDiff Complete? YES; Monocytes 3 % (0-10); Myelocyte 1 % (0-0); Neutrophil 75 % (42-75); Platelet Morphology Comment Appears Decreased; Toxic Granulation SLIGHT
[2022-12-12] MEDS: Arformoterol 15 MCG/2 ML NEB NEB SCH ×2 (07:13→18:29)
[2022-12-12] MEDS: Budesonide 0.5 MG/2 ML NEB NEB SCH ×2 (07:14→18:29)
[2022-12-12 07:31] LABS: Actual Bicarbonate (HCO3a) 25.8 mEq/L (22-28); Base Excess (BEa) 1.8 mEq/L (-2.0 to +3.0); CO2 Tension 37.6 mmHg (35.0-45.0); Calcium, Ionized (arterial) 1.18 mmol/L (1.12-1.30); Carboxyhemoglobin (COHb) 1.5 gm% (0.0-3.0); Hemoglobin (Hb) 7.6 g/dL (14.0-18.0); O2 Tension (PaO2), arterial 76.1 mmHg (> 70.0); pH, Arterial 7.46 (7.35-7.45)
[2022-12-12 07:37] LABS: Puncture Site LRA
[2022-12-12] MEDS: Potassium Chloride 20 MEQ in Premix Bag 1 BAG IVPB SCH ×6 (07:54→23:13)
[2022-12-12] MEDS ORDERED: Magnesium 2 GM/50 ML(in water) 2 GM in Premix Bag 1 BAG IVPB SCH (08:00)
[2022-12-12] MEDS: Pantoprazole 40 MG VIAL IVP SCH (08:03)
[2022-12-12] MEDS: Albumin 25% 25 GM/100 ML BOT IVPB SCH ×3 (08:03→21:12)
[2022-12-12] MEDS: Micafungin 100 MG in Sodium Chloride 0.9% 100 ML IVPB SCH (12:58)
[2022-12-12] MEDS: [UNRECOGNIZED DRUG - OTHER] IV SCH (13:58)
[2022-12-12] MEDS: POTASSIUM PHOSPHATE IV SCH (13:58)
[2022-12-12] MEDS: MULTIVITAMINS IV SCH (13:58)
[2022-12-12 15:25] LABS: Potassium 3.5 mmol/L (3.5-5.1)
[2022-12-12] MEDS ORDERED: Furosemide 40 MG/4 ML VIAL IVP SCH (15:34)
[2022-12-12 17:56] LABS: Anion Gap 11 mmol/L (10-20); BUN (Urea Nitrogen) 36 mg/dL (8.4-25.7); Calc. Creatinine Clearance 88 mL/min (70-130); Calcium 8.6 mg/dL (7.8-10.44); Carbon Dioxide 22 mmol/L (23-31); Chloride 107 mmol/L (98-107); Estimated GFR 95; Glucose 120 mg/dL (83-110); Magnesium 2.5 mg/dL (1.6-2.6); Phosphorus 3.1 mg/dL (2.3-4.7); Potassium 4.3 mmol/L (3.5-5.1); Sodium 136 mmol/L (136-145)
[2022-12-13] MEDS: Albumin 25% 25 GM/100 ML BOT IVPB SCH (02:44)
[2022-12-13] MEDS: Meropenem 1 GM in Sodium Chloride 0.9% 100 ML IVPB SCH ×3 (03:05→21:28)
[2022-12-13 05:28] LABS: Hemoglobin 7.5 g/dL (14.0-18.0); Mean Corpuscular HGB CONC 31.9 g/dL (32.0-36.0); Mean Corpuscular Hemoglobin 31.9 pg (27.0-31.0); Mean Platelet Volume 10.5 fL (7.4-10.4); Platelet Count 133 10x3/uL (130-400); RBC Distribution Width 14.3 % (11.5-14.5); Red Blood Cell (RBC) Count 2.34 mill/uL (4.70-6.10)
[2022-12-13 05:46] LABS: Anion Gap 8 mmol/L (10-20); BUN (Urea Nitrogen) 42 mg/dL (8.4-25.7); Calc. Creatinine Clearance 90 mL/min (70-130); Calcium 8.9 mg/dL (7.8-10.44); Carbon Dioxide 30 mmol/L (23-31); Chloride 103 mmol/L (98-107); Estimated GFR 96; Glucose 129 mg/dL (83-110); Phosphorus 3.2 mg/dL (2.3-4.7); Potassium 2.9 mmol/L (3.5-5.1); Sodium 138 mmol/L (136-145)
[2022-12-13 06:17] LABS: Anisocytosis SLIGHT = 6-15 cells (100X) (0-5/hpf); Band 2 % (5-11); Hypochromia SLIGHT = 6-15 cells (100X) (0-5/hpf); Large Platelets SLIGHT; Lymphocytes 3 % (21-51); MDiff Complete? YES; Macrocytosis SLIGHT = 6-15 cells (100X) (0-5/hpf); Myelocyte 1 % (0-0); Neutrophil 94 % (42-75); Platelet Morphology Comment Appears Adequate; Polychromasia SLIGHT = 2-3 cells (100X) (0-2/hpf)
[2022-12-13] MEDS: Potassium Chloride 20 MEQ in Premix Bag 1 BAG IVPB SCH ×4 (07:00→12:17)
[2022-12-13] MEDS: Arformoterol 15 MCG/2 ML NEB NEB SCH ×2 (07:38→19:06)
[2022-12-13] MEDS: Budesonide 0.5 MG/2 ML NEB NEB SCH ×2 (07:42→19:06)
[2022-12-13] MEDS: Pantoprazole 40 MG VIAL IVP SCH (09:38)
[2022-12-13] MEDS: Hydrocortisone Sod Succ/PF 100 mg/2 ml Vial IVP SCH (09:38)
[2022-12-13] MEDS: Metolazone 2.5 MG TAB PO SCH (09:44)
[2022-12-13] MEDS ORDERED: Magnesium 2 GM/50 ML(in water) 2 GM in Premix Bag 1 BAG IVPB SCH (09:45)
[2022-12-13] MEDS: methylPREDNISolone Sod Succ/PF 125 MG/2 ML VIAL IVP SCH ×3 (12:16→22:48)
[2022-12-13 13:25] LABS: Potassium - ABG Lab 2.64 mmol/L (3.70-5.30)
[2022-12-13] MEDS: Micafungin 100 MG in Sodium Chloride 0.9% 100 ML IVPB SCH (13:48)
[2022-12-13] MEDS: [UNRECOGNIZED DRUG - OTHER] IV SCH (14:22)
[2022-12-13] MEDS: POTASSIUM PHOSPHATE IV SCH (14:22)
[2022-12-13] MEDS: MULTIVITAMINS IV SCH (14:22)
[2022-12-13] MEDS: Morphine 2 MG/ML VIAL SLOW IVP PRN (17:11)
[2022-12-13] MEDS ORDERED: Furosemide 40 MG/4 ML VIAL IVP SCH (17:29)
[2022-12-13] MEDS: Lorazepam 2 MG/ML VIAL SLOW IVP PRN (22:48)
[2022-12-14] MEDS: Meropenem 1 GM in Sodium Chloride 0.9% 100 ML IVPB SCH ×3 (03:13→20:50)
[2022-12-14 03:33] LABS: Hemoglobin 8.4 g/dL (14.0-18.0); Mean Corpuscular HGB CONC 31.8 g/dL (32.0-36.0); Mean Corpuscular Hemoglobin 31.6 pg (27.0-31.0); Mean Corpuscular Volume 99.2 fl (78.0-98.0); Mean Platelet Volume 10.5 fL (7.4-10.4); Platelet Count 179 10x3/uL (130-400); RBC Distribution Width 14.5 % (11.5-14.5); Red Blood Cell (RBC) Count 2.66 mill/uL (4.70-6.10); White Blood Cell (WBC) Count 18.7 10x3/uL (4.8-10.8)
[2022-12-14 03:49] LABS: Band 6 % (5-11); MDiff Complete? YES; Myelocyte 1 % (0-0); Neutrophil 93 % (42-75); Toxic Granulation SLIGHT
[2022-12-14 03:50] LABS: Anion Gap 10 mmol/L (10-20); BUN (Urea Nitrogen) 47 mg/dL (8.4-25.7); Calc. Creatinine Clearance 91 mL/min (70-130); Calcium 8.5 mg/dL (7.8-10.44); Carbon Dioxide 34 mmol/L (23-31); Chloride 99 mmol/L (98-107); Estimated GFR 97; Glucose 140 mg/dL (83-110); Phosphorus 3.7 mg/dL (2.3-4.7); Sodium 140 mmol/L (136-145)
[2022-12-14 03:56] LABS: Potassium 2.6 mmol/L (3.5-5.1)
[2022-12-14] MEDS: methylPREDNISolone Sod Succ/PF 125 MG/2 ML VIAL IVP SCH (05:10)
[2022-12-14] MEDS: Potassium Chloride 20 MEQ in Premix Bag 1 BAG IVPB SCH ×4 (06:45→13:18)
[2022-12-14] MEDS: Budesonide 0.5 MG/2 ML NEB NEB SCH ×2 (07:08→20:31)
[2022-12-14] MEDS: Arformoterol 15 MCG/2 ML NEB NEB SCH ×2 (07:09→20:31)
[2022-12-14 07:31] LABS: Magnesium 2.2 mg/dL (1.6-2.6)
[2022-12-14 08:07] LABS: Actual Bicarbonate (HCO3a) 36.4 mEq/L (22-28); Base Excess (BEa) 12.4 mEq/L (-2.0 to +3.0); CO2 Tension 45.2 mmHg (35.0-45.0); Calcium, Ionized (arterial) 1.19 mmol/L (1.12-1.30); Carboxyhemoglobin (COHb) 1.1 gm% (0.0-3.0); O2 Tension (PaO2), arterial 77.5 mmHg (> 70.0); Potassium - ABG Lab 2.88 mmol/L (3.70-5.30); pH, Arterial 7.52 (7.35-7.45)
[2022-12-14 08:08] LABS: Puncture Site RRA
[2022-12-14] MEDS: Pantoprazole 40 MG VIAL IVP SCH (08:50)
[2022-12-14] MEDS: Metolazone 2.5 MG TAB PO SCH (09:26)
[2022-12-14] MEDS: Morphine 2 MG/ML VIAL SLOW IVP PRN (09:38)
[2022-12-14] MEDS: Aluminum & Magnesium Hydroxide 60 ML, Lidocaine 2% Viscous Solution 30 ML, diphenhydrAM... FS PRN (10:13)
[2022-12-14] MEDS ORDERED: Fentanyl CADD 0 ML ONE (10:24)
[2022-12-14] MEDS: methylPREDNISolone Sod Succ 40 MG VIAL IVP SCH ×2 (12:01→17:19)
[2022-12-14] MEDS: Scopolamine 1.5 mg/72 hour Patch TD SCH (13:17)
[2022-12-14] MEDS: Micafungin 100 MG in Sodium Chloride 0.9% 100 ML IVPB SCH (13:19)
[2022-12-14 15:45] LABS: Anion Gap 9 mmol/L (10-20); BUN (Urea Nitrogen) 46 mg/dL (8.4-25.7); Calc. Creatinine Clearance 81 mL/min (70-130); Calcium 8.7 mg/dL (7.8-10.44); Carbon Dioxide 35 mmol/L (23-31); Chloride 98 mmol/L (98-107); Estimated GFR 96; Glucose 246 mg/dL (83-110); Magnesium 2.2 mg/dL (1.6-2.6); Phosphorus 4.2 mg/dL (2.3-4.7); Potassium 3.9 mmol/L (3.5-5.1); Sodium 138 mmol/L (136-145)
[2022-12-14] MEDS ORDERED: Furosemide 40 MG/4 ML VIAL SLOW IVP SCH (16:15)
[2022-12-15] MEDS: methylPREDNISolone Sod Succ 40 MG VIAL IVP SCH ×3 (00:28→20:44)
[2022-12-15] MEDS: Meropenem 1 GM in Sodium Chloride 0.9% 100 ML IVPB SCH ×3 (03:36→20:43)
[2022-12-15 04:19] LABS: BUN (Urea Nitrogen) 50 mg/dL (8.4-25.7); Calc. Creatinine Clearance 82 mL/min (70-130); Calcium 8.7 mg/dL (7.8-10.44); Estimated GFR 97; Glucose 111 mg/dL (83-110); Phosphorus 4.4 mg/dL (2.3-4.7)
[2022-12-15 04:27] LABS: Anisocytosis SLIGHT = 6-15 cells (100X) (0-5/hpf); Band 4 % (5-11); Hemoglobin 8.6 g/dL (14.0-18.0); Lymphocytes 4 % (21-51); MDiff Complete? YES; Macrocytosis SLIGHT = 6-15 cells (100X) (0-5/hpf); Mean Corpuscular HGB CONC 33.1 g/dL (32.0-36.0); Mean Corpuscular Hemoglobin 33.1 pg (27.0-31.0); Mean Platelet Volume 10.4 fL (7.4-10.4); Neutrophil 92 % (42-75); Platelet Count 219 10x3/uL (130-400); Platelet Morphology Comment Appears Adequate; Polychromasia SLIGHT = 2-3 cells (100X) (0-2/hpf); RBC Distribution Width 14.6 % (11.5-14.5); White Blood Cell (WBC) Count 20.1 10x3/uL (4.8-10.8)
[2022-12-15 04:28] LABS: Anion Gap 12 mmol/L (10-20); Carbon Dioxide 36 mmol/L (23-31); Chloride 97 mmol/L (98-107); Potassium 2.9 mmol/L (3.5-5.1); Sodium 142 mmol/L (136-145)
[2022-12-15] MEDS: Budesonide 0.5 MG/2 ML NEB NEB SCH ×2 (07:53→18:47)
[2022-12-15] MEDS: Arformoterol 15 MCG/2 ML NEB NEB SCH ×3 (07:53→18:46)
[2022-12-15] MEDS ORDERED: Potassium Chloride 20 MEQ in Premix Bag 1 BAG IVPB SCH (08:00)
[2022-12-15] MEDS: Potassium Chloride 40 MEQ in Premix Bag 1 BAG IVPB SCH ×2 (08:32→11:17)
[2022-12-15] MEDS: Metolazone 2.5 MG TAB PO SCH (08:34)
[2022-12-15] MEDS: Pantoprazole 40 MG VIAL IVP SCH (08:34)
[2022-12-15] MEDS: Aluminum & Magnesium Hydroxide 60 ML, Lidocaine 2% Viscous Solution 30 ML, diphenhydrAM... FS PRN (08:45)
[2022-12-15 12:00] VITALS: BMI 19.9
[2022-12-15] MEDS: Micafungin 100 MG in Sodium Chloride 0.9% 100 ML IVPB SCH (12:52)
[2022-12-15] MEDS: Aluminum & Magnesium Hydroxide 60 ML, diphenhydrAMINE 150 MG, Lidocaine 2% Viscous Solu... SSW SCH ×2 (16:48→20:46)
[2022-12-15 17:49] LABS: Potassium 3.6 mmol/L (3.5-5.1)
[2022-12-15] MEDS ORDERED: Ipratropium/Albuterol 3 ML NEB NEB PRN (19:33)
[2022-12-15] MEDS ORDERED: DC Sedation Protocol FS ONE (19:33)
[2022-12-15] MEDS: Guaifenesin DM 100-10/5 ML UDCUP PER TUBE PRN (20:46)
[2022-12-16] MEDS: Guaifenesin DM 100-10/5 ML UDCUP PER TUBE PRN (03:54)
[2022-12-16] MEDS: Meropenem 1 GM in Sodium Chloride 0.9% 100 ML IVPB SCH ×3 (03:55→20:30)
[2022-12-16 04:03] LABS: BUN (Urea Nitrogen) 51 mg/dL (8.4-25.7); Calc. Creatinine Clearance 79 mL/min (70-130); Calcium 9.2 mg/dL (7.8-10.44); Estimated GFR 97; Glucose 106 mg/dL (83-110)
[2022-12-16 04:12] LABS: Anion Gap 15 mmol/L (10-20); Carbon Dioxide 35 mmol/L (23-31); Chloride 100 mmol/L (98-107); Potassium 3.4 mmol/L (3.5-5.1); Sodium 147 mmol/L (136-145)
[2022-12-16 04:14] LABS: Anisocytosis SLIGHT = 6-15 cells (100X) (0-5/hpf); Band 15 % (5-11); Hemoglobin 9.7 g/dL (14.0-18.0); Hypochromia SLIGHT = 6-15 cells (100X) (0-5/hpf); MDiff Complete? YES; Macrocytosis SLIGHT = 6-15 cells (100X) (0-5/hpf); Mean Corpuscular HGB CONC 31.7 g/dL (32.0-36.0); Mean Corpuscular Hemoglobin 31.9 pg (27.0-31.0); Mean Platelet Volume 10.1 fL (7.4-10.4); Neutrophil 85 % (42-75); Nucleated RBC 1 % (0); Ovalocytes SLIGHT = 2-5 cells (100X) (0-1/hpf); Platelet Count 313 10x3/uL (130-400); Platelet Morphology Comment Appears Adequate; Polychromasia SLIGHT = 2-3 cells (100X) (0-2/hpf); RBC Distribution Width 15.5 % (11.5-14.5); Red Blood Cell (RBC) Count 3.02 mill/uL (4.70-6.10); Target Cells SLIGHT = 2-5 cells (100X) (0-1/hpf); White Blood Cell (WBC) Count 28.6 10x3/uL (4.8-10.8)
[2022-12-16] MEDS ORDERED: Potassium Bicarbonate/Cit Ac 20 MEQ TAB PER TUBE SCH (08:00)
[2022-12-16] MEDS: Arformoterol 15 MCG/2 ML NEB NEB SCH ×2 (09:02→18:38)
[2022-12-16] MEDS: Budesonide 0.5 MG/2 ML NEB NEB SCH ×2 (09:03→18:39)
[2022-12-16] MEDS: Acetaminophen 650 MG/20.3 ML UDCUP PO PRN ×2 (09:05→12:57)
[2022-12-16] MEDS: methylPREDNISolone Sod Succ 40 MG VIAL IVP SCH ×2 (09:06→20:32)
[2022-12-16] MEDS: Aluminum & Magnesium Hydroxide 60 ML, diphenhydrAMINE 150 MG, Lidocaine 2% Viscous Solu... SSW SCH ×4 (09:06→20:33)
[2022-12-16] MEDS: Pantoprazole 40 MG VIAL IVP SCH (09:06)
[2022-12-16] MEDS: Micafungin 100 MG in Sodium Chloride 0.9% 100 ML IVPB SCH (12:22)
[2022-12-16] MEDS ORDERED: Morphine 2 MG/ML VIAL SLOW IVP PRN (14:05)
[2022-12-16] MEDS ORDERED: Potassium Phosphate 30 MMOL in Sodium Chloride 0.9% 250 ML 250 ML IVPB SCH (16:00)
[2022-12-16] MEDS ORDERED: Potassium Chloride 20 MEQ in Premix Bag 1 BAG IVPB SCH (16:00)
[2022-12-16] MEDS ORDERED: Melatonin 3 MG TAB PO SCH (21:00)
[2022-12-17] MEDS: Meropenem 1 GM in Sodium Chloride 0.9% 100 ML IVPB SCH ×2 (04:51→12:24)
[2022-12-17 05:01] LABS: BUN (Urea Nitrogen) 42 mg/dL (8.4-25.7); Band 11 % (5-11); Calc. Creatinine Clearance 90 mL/min (70-130); Estimated GFR 100; Glucose 127 mg/dL (83-110); Hemoglobin 10.2 g/dL (14.0-18.0); Hypochromia SLIGHT = 6-15 cells (100X) (0-5/hpf); Lymphocytes 1 % (21-51); MDiff Complete? YES; Macrocytosis SLIGHT = 6-15 cells (100X) (0-5/hpf); Mean Corpuscular Hemoglobin 33.5 pg (27.0-31.0); Mean Platelet Volume 10.2 fL (7.4-10.4); Monocytes 3 % (0-10); Neutrophil 85 % (42-75); Phosphorus 2.9 mg/dL (2.3-4.7); Platelet Count 355 10x3/uL (130-400); Platelet Morphology Comment Appears Adequate; RBC Distribution Width 15.9 % (11.5-14.5); Red Blood Cell (RBC) Count 3.06 mill/uL (4.70-6.10); White Blood Cell (WBC) Count 26.9 10x3/uL (4.8-10.8)
[2022-12-17 05:10] LABS: Anion Gap 16 mmol/L (10-20); Carbon Dioxide 33 mmol/L (23-31); Chloride 104 mmol/L (98-107); Potassium 3.8 mmol/L (3.5-5.1); Sodium 149 mmol/L (136-145)
[2022-12-17] MEDS: Arformoterol 15 MCG/2 ML NEB NEB SCH (07:06)
[2022-12-17] MEDS: Budesonide 0.5 MG/2 ML NEB NEB SCH (07:07)
[2022-12-17] MEDS ORDERED: Magnesium 2 GM/50 ML(in water) 2 GM in Premix Bag 1 BAG IVPB SCH (08:00)
[2022-12-17] MEDS ORDERED: Saccharomyces boulardii 250 MG CAP PO SCH (09:00)
[2022-12-17] MEDS: Aluminum & Magnesium Hydroxide 60 ML, diphenhydrAMINE 150 MG, Lidocaine 2% Viscous Solu... SSW SCH ×2 (09:11→13:50)
[2022-12-17] MEDS: Pantoprazole 40 MG VIAL IVP SCH (09:13)
[2022-12-17] MEDS: methylPREDNISolone Sod Succ 40 MG VIAL IVP SCH (09:13)
[2022-12-17 11:38] VITALS: TEMP 97.9
[2022-12-17] MEDS: Scopolamine 1.5 mg/72 hour Patch TD SCH (12:25)
[2022-12-17] MEDS: Micafungin 100 MG in Sodium Chloride 0.9% 100 ML IVPB SCH (12:25)
[2022-12-17 15:30] VITALS: BP 140/77
[2022-12-18] MEDS ORDERED: Lansoprazole 15 MG/5 ML (BATCHED)UDCUP PER TUBE SCH (09:00)
== END 2022-12-17 18:19 | disposition expired | DRG 853 ==
LOC: ERS 03:14 → CCU 08:12 → SURG A 12-16 11:32 → IMCU/EMU 12-16 15:58
PROVIDERS: ADMIT Student in an Organized Health Care Education/Training Program; ATTEND Family Medicine
PROC: 0DBN0ZZ Excision of Sigmoid Colon, Open Approach (ICD-10-PCS; principal; 2022-12-03)
PROC: 0D1N0Z4 Bypass Sigmoid Colon to Cutaneous, Open Approach (ICD-10-PCS; 2022-12-03)
PROC: 5A1955Z Respiratory Ventilation, Greater than 96 Consecutive Hours (ICD-10-PCS; 2022-12-03)
PROC: 0BH17EZ Insertion of Endotracheal Airway into Trachea, Via Natural or Artificial Opening (ICD-10-PCS; 2022-12-03)
PROC: 3E033XZ Introduction of Vasopressor into Peripheral Vein, Percutaneous Approach (ICD-10-PCS; 2022-12-03)
PROC: 30233J1 Transfusion of Nonautologous Serum Albumin into Peripheral Vein, Percutaneous Approach (ICD-10-PCS; 2022-12-03)
PROC: 3E03329 Introduction of Other Anti-infective into Peripheral Vein, Percutaneous Approach (ICD-10-PCS; 2022-12-03)
PROC: 4A033R1 Measurement of Arterial Saturation, Peripheral, Percutaneous Approach (ICD-10-PCS; 2022-12-05)
PROC: 5A0935A Assistance with Respiratory Ventilation, Less than 24 Consecutive Hours, High Flow/Velocity Cannula (ICD-10-PCS; 2022-12-08)
PROC: 3E0336Z Introduction of Nutritional Substance into Peripheral Vein, Percutaneous Approach (ICD-10-PCS; 2022-12-10)
DX: A41.9 Sepsis, unspecified organism (principal); G93.41 Metabolic encephalopathy; J96.01 Acute respiratory failure with hypoxia; R65.21 Severe sepsis with septic shock; K63.1 Perforation of intestine (nontraumatic); K65.9 Peritonitis, unspecified; E87.20 Acidosis, unspecified; C19 Malignant neoplasm of rectosigmoid junction; N17.9 Acute kidney failure, unspecified; E87.1 Hypo-osmolality and hyponatremia; D62 Acute posthemorrhagic anemia; R57.9 Shock, unspecified; E44.0 Moderate protein-calorie malnutrition; Z51.5 Encounter for palliative care; Z66 Do not resuscitate; J44.9 Chronic obstructive pulmonary disease, unspecified; I10 Essential (primary) hypertension; I48.0 Paroxysmal atrial fibrillation; E87.6 Hypokalemia; T38.0X5A Adverse effect of glucocorticoids and synthetic analogues, initial encounter; E83.39 Other disorders of phosphorus metabolism; D69.6 Thrombocytopenia, unspecified; Z85.048 Personal history of other malignant neoplasm of rectum, rectosigmoid junction, and anus; Z98.890 Other specified postprocedural states; Z79.51 Long term (current) use of inhaled steroids; Z79.899 Other long term (current) drug therapy; Z68.20 Body mass index [BMI] 20.0-20.9, adult
CPT/HCPCS: 36415; 36416; 36600; 71045; 71260; 74018; 74177; 80048; 80053; 80076; 80202; 82533; 82805; 83735; 83880; 84100; 85025; 85049; 85300; 85362; 85379; 85384; 85610; 85730; 86850; 86900; 86901; 87070; 87076; 87077; 87186; 87205; 93005; 93010; 93306; 94002; 94003; 94150; 94640; 94760; 96365; 96366; 96368; 96374; 97139; C9113; J0282; J0744; J1265; J1650; J1720; J1940; J2060; J2185; J2248; J2250; J2272; J2543; J2920; J2930; J2997; J3010; J3370; J3370-JW; J3475; J3480; J3490; J7042; J7050; J7070; J7120; J7626; P9045; P9047; Q0163; Q9963; Q9967